=== PATIENT | male | born 1950 | race Caucasian/White ===

== ENCOUNTER → 2016-11-30 | Outpatient (CLI) | payer BC ==
[~2016-11-30] MED LIST: AMLO-110 PO; ASPI81TA28 PO; CHOL100010 PO; CLC100 PO; LBR25 PO; LORA-741 PO; METO50TA7 PO; MIRA1TAB3 PO; MULT-506 PO; OPTIRAY 320 IV PRN; OXYB5TAB74 PO; ROSU5TAB PO; SOLI10TA2 PO; ULT50X PO; VALS320T PO; ZOLP10TA PO
--- NOTE | 2016-11-30 11:33 | DIAGNOSTIC IMAGING REPORT ---
CT OF THE CHEST WITH IV CONTRAST CLINICAL HISTORY: PULMONARY NODULE, LEFT SIDE COMPARISON STUDY: 09-09 TECHNIQUE: Following the IV administration of 118 mL of Optiray-320, CT of the thorax was performed from the thoracic inlet to the lung bases. Images are reviewed in the axial, sagittal, and coronal planes. IV contrast was administered without complication. CT DOSE: 452.09 mGy.cm FINDINGS: Thyroid: Imaged portions of the thyroid gland are normal in appearance. Thoracic aorta: The thoracic aorta is normal in course and caliber, noting standard 3-vessel arch anatomy. No aneurysm or dissection is seen. Pulmonary vasculature: The pulmonary trunk is normal in caliber. There are no central filling defects identified to suggest pulmonary embolus. Note that this examination was not protocoled for the evaluation of pulmonary emboli. HEART: The heart is normal in size. There are mild to moderate coronary artery calcifications. Lungs and pleural spaces: No pleural effusions are visualized. There is pulmonary emphysema. There is a stable, 10 x 5 x 5 mm bilobed left upper lobe pulmonary nodule.. Mediastinum: There is no mediastinal lymphadenopathy. Kelli: Clear. Axilla: Clear. Upper abdomen: There is a 2 cm lower pole left renal cyst Skeletal structures: There is an old superior endplate L1 compression fracture. IMPRESSION: 1. Stable 10 x 5 x 5 mm bilobed left upper lobe pulmonary nodule 2. Emphysema 3. No evidence of pathologic adenopathy. Please refer to below summary of Fleischner criteria recommendations for follow-up of incidental CT nodules (Karin Barrera, Guidelines for management of small pulmonary nodules detected on CT scans: A statement from the Fleischner Society, Radiology 237: [phone].) Low Risk Patient: Minimal or no smoking or other known risk factors for malignancy <=4 mm: No follow-up needed. >4-6 mm: Initial follow-up CT at 12 months; if unchanged, no further follow-up. >6-8 mm: Initial follow-up CT at 6-12 months then at 18-24 months if no change. >8 mm: Follow-up CT at \R\3, 9, 24 months, or PET and/or biopsy. High Risk Patient: History of smoking or other known risk factors <=4 mm: Follow-up at 12 months; if unchanged, no further follow-up. >4-6 mm: Initial follow-up CT at 6-12 months then at 18-24 months if no change. >6-8 mm: Initial follow-up CT at 3-6 months then at 9-12 and 24 months if no change. >8 mm: Same as low risk patient. Note: Nodule size measured as average of length and width. Ground glass or partly solid nodules may require longer follow-up to exclude indolent adenocarcinoma. Electronically signed by: Micha Buckley M.D. 11/30/2016 11:32 AM Dictated Date/Time: 11/30/2016 11:26 AM
[2016-11-30 12:30] LABS: ALT/SGPT 22 U/L (12-78); AST/SGOT 11 U/L (15-37); BLOOD UREA NITROGEN 17 mg/dl (7-18); BUN/CREATININE RATIO 19.6 (10-20); CALCIUM 8.3 mg/dl (8.5-10.1); CARBON DIOXIDE 27 mmol/L (21-32); CHLORIDE 102 mmol/L (98-107); CREATININE 0.85 mg/dl (0.60-1.40); GLUCOSE 97 mg/dl (70-99); POTASSIUM 4.5 mmol/L (3.5-5.1); SODIUM 136 mmol/L (136-145)
[2016-11-30 12:32] LABS: ALKALINE PHOSPHATASE 56 U/L (45-117); CHOLESTEROL 104 mg/dl (0-200); CHOLESTEROL/HDL RATIO 2.8; HDL CHOLESTEROL 37 mg/dl; LDL CHOLESTEROL CALCULATED 47 mg/dl; TRIGLYCERIDES 100 mg/dl (0-150); VERY LOW DENSITY LIPOPROT CALC 20 mg/dl
[2016-11-30 12:45] LABS: ESTIMATED AVERAGE GLUCOSE 134 mg/dl; HA1C FLAG Normal (Normal)
--- NOTE | 2016-12-06 11:59 | CODING QUERY MEDICAL NECESSITY ---
SUPPORTING DIAGNOSIS NEEDED A supporting diagnosis is required for the test/procedure performed on this patient in order for us to be reimbursed by the patient's insurance. Please provide a supporting diagnosis for the following test/procedure listed below next to the test name along with your signature. *If there is no additional diagnosis for this patient that would support the following test/procedure please document that below next to the test/procedure. Test(s)/Procedure(s) that require a supporting diagnosis: * GLYCATED HEMOGLOBIN DIAGNOSIS: * DOS: 11/30/16 Provider Signature: Date: Thank you Lexi Jung Health Information Management Once completed, please kindly fax back to [phone] For questions please call [phone]
== END | disposition home or self-care (01) ==
LOC: C.CTS 11:01
PROVIDERS: ATTEND Internal Medicine
DX: R91.1 Solitary pulmonary nodule (principal); L98.9 Disorder of the skin and subcutaneous tissue, unspecified; J43.9 Emphysema, unspecified; R73.01 Impaired fasting glucose

== ENCOUNTER → 2017-03-08 | Outpatient (CLI) | payer BC ==
[~2017-03-08] MED LIST changes: +DTR/5 PO; -OPTIRAY 320 IV PRN; -OXYB5TAB74 PO
== END | disposition home or self-care (01) ==
LOC: C.LAB 08:23
PROVIDERS: ATTEND Urology
DX: C61 Malignant neoplasm of prostate (principal)

== ENCOUNTER → 2017-03-30 | Outpatient (CLI) | payer BC ==
[~2017-03-30] MED LIST changes: -DTR/5 PO; +OXYB5TAB74 PO
--- NOTE | 2017-03-30 09:26 | DIAGNOSTIC IMAGING REPORT ---
(CHEST) THORAX WITHOUT HISTORY:66 yearsMalePULMONARY NODULE COMPARISON: Chest CT 11/30/2016. TECHNIQUE: Multiple axial CT images of the chest were obtained without contrast. FINDINGS: No dominant thyroid nodule is seen. No pathologic-appearing adenopathy of the thorax is identified. Three-vessel distribution coronary arterial calcifications are present. Moderate to extensive atherosclerotic plaquing of the aorta and carotid vasculature is redemonstrated. Positional Afrin prior plaquing of the celiac, superior mesenteric and renal artery origins. There is no pneumothorax or pleural effusion. There is mild paraseptal and centrilobular upper lobe predominant emphysematous changes noted. The lungs are hyperinflated. No focal airspace consolidation or overt pulmonary edema. There is a linear noncalcified pulmonary nodule again seen within the apical posterior segment left upper lobe measuring 5 x 5 x 10 mm in AP, transverse and craniocaudal dimensions respectively. There is subsegmental pleural parenchymal scarring of the lung bases. No additional suspicious or new pulmonary nodules are identified. Minimal layering secretions are seen within the mid to distal trachea. The imaged upper abdominal structures are within normal limits.Multilevel discogenic degenerative changes are present throughout the spine along with facet arthrosis. There is approximately 30% anterior endplate compression deformity of the L1 vertebral body, unchanged from comparison IMPRESSION: 1. Unchanged linear 10 x 5 x 5 mm noncalcified pulmonary nodule of the apical posterior segment left upper lobe. No new or additional suspicious pulmonary nodules are identified. 2. Background mild paraseptal and centrilobular upper lobe predominant emphysema. 3. No pathologic adenopathy identified. Please refer to below summary of Fleischner criteria recommendations for follow-up of incidental CT nodules (Karin Barrera, Guidelines for management of small pulmonary nodules detected on CT scans: A statement from the Fleischner Society, Radiology 237: [phone].) SOLID NODULES Multiple nodules size: >8 mm * Low risk patients: follow-up at 3-6 months, then consider further follow-up at 18-24 months * high risk patients: follow-up at 3-6 months, then at 18-24 months if no change Note: newly detected indeterminate nodule in persons 35 years of age or older. * Low risk patients: minimal or absent history of smoking and/or other known risk factors * high risk patients: history of smoking or of other known risk factors (e.g. first degree relative with lung cancer, or exposure to asbestos, radon, uranium) * if a nodule up to 8 mm is partly solid or is ground glass further follow-up is required after 24 months to exclude possible slow growing adenocarcinoma (CLARISSE) The above report was generated using voice recognition software. It may contain grammatical, syntax or spelling errors. Electronically signed by: Jeffy Puente 03/30/2017 9:25 AM Dictated Date/Time: 03/30/2017 9:16 AM
== END | disposition home or self-care (01) ==
LOC: C.CTS 08:57
PROVIDERS: ATTEND Internal Medicine Pulmonary Disease
DX: R91.1 Solitary pulmonary nodule (principal)

== ENCOUNTER → 2017-04-19 | Outpatient (CLI) | payer BC ==
[2017-04-19 12:44] LABS: ESTIMATED AVERAGE GLUCOSE 137 mg/dl; HA1C FLAG Normal (Normal)
== END | disposition home or self-care (01) ==
LOC: C.LABBC 08:52
PROVIDERS: ATTEND Internal Medicine
DX: R73.01 Impaired fasting glucose (principal)

== ENCOUNTER → 2017-04-24 | Outpatient (CLI) | payer BC ==
[~2017-04-24] VITALS: Ht 170.8 cm; Wt 78.5 kg
[2017-04-24 14:47] VITALS: BP_DIAS 72
[2017-04-24 14:55] VITALS: Ht 170.8 cm; Wt 78.5 kg
== END | disposition home or self-care (01) ==
LOC: C.NRED 10:21
PROVIDERS: ATTEND Internal Medicine
DX: R73.03 Prediabetes (principal)

== ENCOUNTER 2017-05-26 05:14 | Inpatient (IN) | payer BC, OTHER ==
[2017-05-18 08:54] VITALS: BMI 27.0
--- NOTE | 2017-05-18 09:38 | PAT Medication Instructions ---
Service Date May 18, 2017. Current Home Medication List Amlodipine (Norvasc), 5 MG PO QAM Aspirin (Aspirin Ec), 81 MG PO QAM Cholecalciferol (Vitamin D), 2,000 INTER.UNIT PO QAM Lorazepam (Ativan), 0.5 MG PO Q6H PRN for ANXIETY Metoprolol Succ (Toprol Xl) (Toprol-Xl), 75 MG PO QAM Mirabegron (Myrbetriq Er), 50 MG PO QAM Multivitamin (Multivitamin), 1 TAB PO QAM Oxybutynin Chloride (Ditropan), 1 TAB PO BID Rosuvastatin Calcium (Crestor), 10 MG PO QAM Valsartan (Diovan), 320 MG PO QAM Zolpidem Tartrate (Ambien), 5 MG PO HS PRN for Sleep Medication Instructions For Your Scheduled Surgery - Check with surgeon for instructions: Aspirin (Aspirin Ec), 81 MG PO QAM - Hold the following medications the morning of surgery: Valsartan (Diovan), 320 MG PO QAM Mirabegron (Myrbetriq Er), 50 MG PO QAM Multivitamin (Multivitamin), 1 TAB PO QAM Oxybutynin Chloride (Ditropan), 1 TAB PO BID Cholecalciferol (Vitamin D), 2,000 INTER.UNIT PO QAM - Take the following medications the morning of surgery with a sip of water: Amlodipine (Norvasc), 5 MG PO QAM Lorazepam (Ativan), 0.5 MG PO Q6H PRN for ANXIETY (if needed) Metoprolol Succ (Toprol Xl) (Toprol-Xl), 75 MG PO QAM Rosuvastatin Calcium (Crestor), 10 MG PO QAM - Take the following medications as scheduled the night before surgery: Zolpidem Tartrate (Ambien), 5 MG PO HS PRN for Sleep (if needed) Oxybutynin Chloride (Ditropan), 1 TAB PO BID Lorazepam (Ativan), 0.5 MG PO Q6H PRN for ANXIETY (if needed) If you have any questions please call us at [phone] or [phone] or [phone]
[2017-05-18 10:00] LABS: BASO % 0.5 %; BASO ABS # 0.04 K/uL (0-0.2); COMPLETE YES; EOS % 4.2 %; HEMATOCRIT 42.7 % (42-52); IG% 0.1 %; LYMPH % 24.5 %; LYMPH ABS # 2.09 K/uL (1.2-3.4); MEAN CELL VOLUME 97.7 fL (80-100); MEAN CORPUSCULAR HEMOGLOBIN 33.6 pg (25-34); MEAN CORPUSCULAR HGB CONC 34.4 g/dl (32-36); MEAN PLATELET VOLUME 8.2 fL (7.4-10.4); MONO % 8.2 %; NEUT % 62.5 %; PLATELET COUNT 290 K/uL (130-400); RED BLOOD COUNT 4.37 M/uL (4.7-6.1); WHITE BLOOD COUNT 8.53 K/uL (4.8-10.8)
[2017-05-18 12:15] LABS: BUN/CREATININE RATIO 23.4 (10-20); CALCIUM 8.9 mg/dl (8.5-10.1); CREATININE 0.78 mg/dl (0.60-1.40); POTASSIUM 4.5 mmol/L (3.5-5.1)
[2017-05-25] MEDS: METOCLOPRAMIDE HCL INJ 5 MG/ML 2 ML VIAL IV. SCH (15:00)
[~2017-05-26] VITALS: Ht 172.7 cm; Wt 80.5 kg
[2017-05-26] VITALS (9 sets, daily range): BP systolic 111–154; BP diastolic 65–80; PULSE 52–82; TEMP 36.3–36.9; O2SAT 90–97; Ht 172.7 cm; Wt 80.5 kg
[~2017-05-26 05:14] MED LIST changes: -CLC100 PO; -LBR25 PO; -SOLI10TA2 PO; -ULT50X PO
[2017-05-26] MEDS ORDERED: LACTATED RINGER'S 1000ML 1,000 ML IV SCH (06:00)
[2017-05-26] MEDS ORDERED: SODIUM CHLORIDE 0.9% PF 50 ML VIAL ONE (06:55)
[2017-05-26] MEDS ORDERED: BUPIVACAINE LIPOSOME 1/3% 266 MG/20 ML VIAL INFIL ONE (06:55)
--- NOTE | 2017-05-26 06:58 | History & Physical Bridge Note ---
H&P Re-Evaluation Bridge Note: I have examined the patient, reviewed the History & Physical and in the interval since the performance of the History & Physical I have noted the following changes of clinical significance: No changes noted
[2017-05-26] MEDS ORDERED: SUCCINYLCHOLINE CHLORIDE 20 MG/ML 10 ML VIAL IV ONE (07:08)
[2017-05-26] MEDS ORDERED: ONDANSETRON INJ 2 MG/ML 2 ML VIAL ONE (07:08)
[2017-05-26] MEDS ORDERED: GLYCOPYRROLATE INJ 0.2 MG/ML VIAL ONE (07:08)
[2017-05-26] MEDS ORDERED: LIDOCAINE HCL 2% 2 ML VIAL (20MG/ML) ONE (07:08)
[2017-05-26] MEDS ORDERED: DEXAMETHASONE SOD INJ 4 MG/ML VIAL ONE (07:08)
[2017-05-26] MEDS ORDERED: NEOSTIGMINE METHYLSULFATE 5 MG/5 ML SYR ONE (07:08)
[2017-05-26] MEDS ORDERED: PHENYLEPHRINE HCL INJ 10 MG/ML VIAL ONE (07:08)
[2017-05-26] MEDS ORDERED: PROPOFOL IV EMULSION 10 MG/ML 20 ML VIAL IV ONE (07:08)
[2017-05-26] MEDS ORDERED: EpHEDrine SULFATE INJ 50 MG/ML AMP ONE (07:08)
[2017-05-26] MEDS ORDERED: MIDAZOLAM HCL 1 MG/ML 2ML VIAL ONE (07:09)
[2017-05-26] MEDS ORDERED: FENTANYL CITRATE INJ 50 MCG/1 ML 2 ML VIAL ONE ×3 (07:09→10:51)
[2017-05-26] MEDS ORDERED: CEFAZOLIN SOD 1 GM VIAL ONE (08:10)
[2017-05-26] MEDS ORDERED: PROMETHAZINE HCL INJ 12.5 MG in SODIUM CHLORIDE 0.9% 50ML 50 ML IV PRN (09:15)
[2017-05-26] MEDS ORDERED: FLUMAZENIL 0.1 MG/1 ML 10 ML VIAL IV PRN (09:15)
[2017-05-26] MEDS ORDERED: ONDANSETRON INJ 2 MG/ML 2 ML VIAL IV PRN ×2 (09:15→10:45)
[2017-05-26] MEDS ORDERED: EpHEDrine SULFATE INJ 50 MG/ML AMP IV PRN (09:15)
[2017-05-26] MEDS ORDERED: ATROPINE SULFATE 0.1 MG/ML 5ML SYR IV PRN (09:15)
[2017-05-26] MEDS ORDERED: NALOXONE HCL 0.4 MG/1 ML VIAL/CARP IV PRN (09:15)
[2017-05-26] MEDS ORDERED: D5W AND 1/2NSS 1,000 ML IV SCH (10:39)
[2017-05-26] MEDS ORDERED: LORAZEPAM 0.5 MG TAB PO PRN (10:45)
[2017-05-26] MEDS ORDERED: MoRPHine SULFATE 2 MG/ML CARP IV PRN (10:45)
[2017-05-26] MEDS: HYDROmorphone INJ 1 MG/ML SYR IV PRN ×5 (11:02→12:21)
--- NOTE | 2017-05-26 11:53 | DIAGNOSTIC IMAGING REPORT ---
CHEST ONE VIEW PORTABLE CLINICAL HISTORY: Postop left upper lobe wedge resection. COMPARISON STUDY: 08/01/2016 FINDINGS: Postsurgical changes are present on the left. There is a left chest tube with its tip at the left apex. No significant pneumothorax is visualized. There is a 5 cm left apical opacity, likely representing postsurgical edema. The heart is enlarged. There are bibasal airspace opacities likely atelectatic[ there is mild elevation of the interstitium. Mild pulmonary vascular congestion/fluid overload is suspected. IMPRESSION: 1. 5 cm left apical opacity likely representing postsurgical edema 2. Left-sided chest tube. No significant pneumothorax 3. Bibasilar opacities likely atelectatic 4. Suspected mild pulmonary vascular congestion/fluid overload Electronically signed by: Micha Buckley M.D. 05/26/2017 11:52 AM Dictated Date/Time: 05/26/2017 11:50 AM
--- NOTE | 2017-05-26 12:05 | Anesthesiology Progress Note ---
Anesthesia Post Op Note Date & Time May 26, 2017 at 12:05 Vital Signs Pain Intensity: 5 Vital Signs Past 12 Hours Date Time Temp Pulse Resp B/P (MAP) Pulse Ox O2 Delivery O2 Flow Rate FiO2 05/26/17 11:55 36.0 67 18 108/58 94 Nasal Cannula 4 05/26/17 11:45 66 13 116/59 94 Nasal Cannula 4 05/26/17 11:35 67 12 102/68 93 Nasal Cannula 2 05/26/17 11:25 70 15 117/61 94 Nasal Cannula 2 05/26/17 11:15 71 12 123/60 99 Oxymask 10 05/26/17 11:05 71 12 120/64 99 Oxymask 10 05/26/17 10:55 36.0 67 16 123/48 99 Oxymask 10 05/26/17 05:54 36.5 52 20 154/80 97 Room Air Notes Mental Status: alert / awake / arousable, participated in evaluation Pt Amnestic to Procedure: Yes Nausea / Vomiting: adequately controlled Pain: adequately controlled Airway Patency, RR, SpO2: stable & adequate BP & HR: stable & adequate Hydration State: stable & adequate Anesthetic Complications: no major complications apparent
[2017-05-26] MEDS: OXYCODONE HCL IR 5 MG TAB (IMMEDIATE RELEASE) PO PRN ×2 (13:20→22:00)
--- NOTE | 2017-05-26 13:42 | OPERATIVE REPORT ---
DATE OF OPERATION: 05/26/2017 PREOPERATIVE DIAGNOSIS: Left upper lobe nodule. POSTOPERATIVE DIAGNOSIS: Same. PROCEDURES: 1. Robot assisted thoracoscopic surgery with wedge resection left upper lobe. 2. Lymph node biopsies. SURGEON: Dr. Levine. RISK SPECIALIST: Rich Liang PA-C. ANESTHESIA: General anesthesia endotracheal intubation with double lumen tube. SPECIFICS OF PROCEDURE AND FINDINGS: This is a 66-year-old male with a past medical history of cigarette smoking, was found to have a nodule in his left upper lobe. I saw the patient and his in the office several times and options were discussed. One option would be to wait and repeat a CT scan in 3-6 months. Another option would be to go in and remove this in a minimally invasive fashion and sent it off for frozen section. The patient deliberated about this several times and came to the office stating he would like to have it removed. On 05/26/2017 I brought the patient to the operating room and did an uncomplicated robot assisted thoracoscopic wedge resection of this mass. While waiting for frozen sections I removed several lymph nodes. These all appeared to be benign. He had well-developed fissures. We did not lose blood. We used Exparel to perform intercostal block. There was no evidence of malignancy upon evaluation in the cutting room by the pathologist. I did send off to more wedge resections to make sure that we had gotten this, however even after generous wedge resection I did not find anything that looked malignant. For this reason, we elected to proceed with closure. He tolerated it well. PROCEDURE: The patient was brought to the operating room and laid in supine position. General anesthesia was induced and endotracheal intubation was performed with a double lumen tube. The patient was placed in right lateral decubitus position, his left chest prepped, draped in usual sterile fashion. After appropriate timeout had been called and appropriate antibiotics had been given and the patient had been prepped and draped in usual sterile sterile fashion an incision was made a bit posterior to the scapular tip and a 12 mm port was placed and the camera was placed. There were no adhesions. He had well-developed fissures. AN 8 mm port was placed 10 cm posterior to this in the seventh interspace and then another 8 mm port was placed posteriorly about 10 cm in the seventh intercostal space. Assistance port was placed just above the diaphragm anteriorly. We were then able to bring this down and as there were no adhesions we were to easily mobilize the left upper lobe and we did a generous wedge resection. I did not feel a nodule in this so I took 2 more wedge resections and checked the CT scan multiple times and it was apparent we removed this area. Dr. Neil Sevillaw up in pathology and I talked several times. He did not see evidence of malignancy. The chest was irrigated out, really did not have an air leak. While waiting for the frozen section, I dissected out the fissure posteriorly and sent off some level 11 nodes as well as level 10 and level 5 nodes. I really did not see a level 6 node. We used 266 mg of Exparel reconstituted in 60 mL total of normal saline and performed an intercostal block from the 2nd to the 11th rib. We then placed a 24 Pakistani chest tube in the anterior thoracoscopy port and sutured in place with heavy silk suture. The other incisions were closed with 0 Vicryl to reapproximate the muscle layers and 4-0 Monocryl in running subcuticular fashion to approximate the wound edges. He tolerated it well and was extubated in the room with negligible blood loss. I attest to the content of the Intraoperative Record and any orders documented therein. Any exception s are noted below.
[2017-05-26] MEDS: ACETAMINOPHEN IV 1,000 MG in EMPTY BAG 0 ML IV SCH (16:11)
[2017-05-26] MEDS: CEFAZOLIN IV 2,000 MG in DEXTROSE 5% 50ML 100 ML IV SCH ×2 (16:28→23:56)
[2017-05-26] MEDS ORDERED: NURSING VERBAL MED ORDER ONE (18:30)
[2017-05-26] MEDS: METOCLOPRAMIDE HCL INJ 5 MG/ML 2 ML VIAL IV. SCH (21:55)
[2017-05-26] MEDS: KETOROLAC TROMETHAMINE 15 MG/ML VIAL IV. SCH (21:56)
[2017-05-26] MEDS: DOCUSATE SODIUM 100 MG CAP PO SCH (21:56)
[2017-05-27] MEDS: ACETAMINOPHEN IV 1,000 MG in EMPTY BAG 0 ML IV SCH ×2 (00:02→07:55)
[2017-05-27 03:17] VITALS: BP 114/68; PULSE 65; TEMP 36.7; O2SAT 92
[2017-05-27] MEDS: KETOROLAC TROMETHAMINE 15 MG/ML VIAL IV. SCH (05:13)
[2017-05-27] MEDS: METOCLOPRAMIDE HCL INJ 5 MG/ML 2 ML VIAL IV. SCH (05:13)
[2017-05-27 05:17] VITALS: O2SAT 91
--- NOTE | 2017-05-27 07:16 | DIAGNOSTIC IMAGING REPORT ---
CHEST ONE VIEW PORTABLE HISTORY: 66 years-old Male follow-up study status post left upper lobe wedge resection. COMPARISON: Chest radiograph 05/26/2017 TECHNIQUE: Portable upright AP view of the chest FINDINGS: Cardiac silhouette is upper limits of normal. Left-sided chest tube is in stable positioning terminating at the left lung apex. Well-demarcated edge at the left lung apex is seen with apparent pulmonary markings noted between the edge and chest wall suggesting possible skin fold or alternatively pneumothorax with pleural separation of 2.2 cm. Persistent left upper lobe opacity is noted which may reflect postsurgical changes. Left midlung subsegmental atelectasis is present. Chronic blunting of the right costophrenic angle is noted suggesting atelectasis or scarring. There is mild pulmonary vascular congestion. There is improved aeration of the right lung. There is atherosclerosis of the aorta. There is decreased amount of subcutaneous emphysema along the left lateral chest wall. IMPRESSION: 1. Postsurgical changes of the left lung apex with persistent left upper lobe opacity. Line projecting over the left lung apex is suspicious for pneumothorax. Attention at follow-up recommended. Stable positioning of left-sided chest tube. 2. Improved aeration of the right lung. The above report was generated using voice recognition software. It may contain grammatical, syntax or spelling errors. Electronically signed by: Jeffy Puente M.D. 05/27/2017 7:14 AM Dictated Date/Time: 05/27/2017 7:08 AM
[2017-05-27 07:23] LABS: PROTHROMBIN TIME (PATIENT) 10.8 SECONDS (9.0-12.0)
[2017-05-27] MEDS ORDERED: ULT50X PO (07:24)
--- NOTE | 2017-05-27 07:26 | Discharge Instructions ---
Discharge Instructions Date of Service May 27, 2017. Admission Reason for Admission: Left Lung Mass, Copd Discharge Discharge Diagnosis / Problem: Same Discharge Goals Goal(s): Decrease discomfort (Use pain meds as ordered) Activity Recommendations Activity Limitations: as noted below Lifting Limitations: gradually increase as tolerated Exercise/Sports Limitations: gradually increase as tolerated May Resume Sexual Activity: when tolerated Shower/Bathe: may shower/bathe in 3 days Driving or Machine Use: resume 3 days after discharge . Current Hospital Diet Patient's current hospital diet: Regular Diet Discharge Diet Recommended Diet: Regular Diet Procedures Procedures Performed: Robotic Left Video-Assisted Thoracscopy with Left Upper Lobe Wedge Resection; with Mediastinal Lymphnode Biopsy Pending Studies Studies pending at discharge: yes List of pending studies: Pathology Laboratory Results Hemoglobin A1c Test 04/19/17 09:01 Range/Units Estimated Average Glucose 137 mg/dl Hemoglobin A1c 6.4 H 4.5-5.6 % Medical Emergencies . Who to Call and When: Medical Emergencies: If at any time you feel your situation is an emergency, please call 911 immediately. . Non-Emergent Contact Non-Emergency issues call your: Surgeon (Call [phone] Levine for any problems.) . "Provider Documentation" section prepared by Jhony Levine. . VTE Core Measure Inpt VTE Proph given/why not?: Enoxaparin (Lovenox)SQ, SCD's
[2017-05-27 07:31] VITALS: BP 152/75; PULSE 55; TEMP 36.5; O2SAT 90
--- NOTE | 2017-05-27 07:55 | DIAGNOSTIC IMAGING REPORT ---
CHEST ONE VIEW PORTABLE HISTORY: 66 years-old Male BERENICE wedge follow-up study status post left upper lobe resection and chest tube removal. COMPARISON: Portable chest radiograph 05/27/2017 TECHNIQUE: Portable upright AP view of the chest FINDINGS: Postsurgical changes of the left upper lobe are again seen. Curvilinear line at the left lung apex is again seen suggesting pneumothorax with pleural separation of 2.3 cm. There has been interval removal of the left-sided chest tube. Persistent subsegmental left mid lung and bibasilar opacities suggest atelectasis with chronic blunting of the right costophrenic angle. Bones are grossly intact. IMPRESSION: 1. Status post left chest tube removal. 2. Persistent left apical pneumothorax with postsurgical changes of the left upper lobe. The above report was generated using voice recognition software. It may contain grammatical, syntax or spelling errors. Electronically signed by: Jeffy Puente M.D. 05/27/2017 7:53 AM Dictated Date/Time: 05/27/2017 7:50 AM
[2017-05-27 08:27] VITALS: BP 152/75; PULSE 55; TEMP 36.5; O2SAT 90
[2017-05-27] MEDS: DOCUSATE SODIUM 100 MG CAP PO SCH (08:42)
[2017-05-27] MEDS ORDERED: ROSUVASTATIN CALCIUM 10 MG TAB PO SCH (09:00)
[2017-05-27] MEDS ORDERED: VALSARTAN 80 MG TAB PO SCH (09:00)
[2017-05-27] MEDS ORDERED: ENOXAPARIN 40 MG/0.4 ML SYR SQ SCH (09:00)
[2017-05-27] MEDS ORDERED: AMLODIPINE BESYLATE 5 MG TAB PO SCH (09:00)
[2017-05-27] MEDS ORDERED: ASPIRIN 81 MG ECTAB PO SCH (09:00)
[2017-05-27] MEDS ORDERED: MIRABEGRON ER 25 MG TAB PO SCH (09:00)
[2017-05-27] MEDS ORDERED: MULTIVITAMIN TAB PO SCH (09:00)
[2017-05-27] MEDS ORDERED: CHOLECALCIFEROL 1000 INTER.UNIT TAB PO SCH (09:00)
[2017-05-27] MEDS ORDERED: METOPROLOL SUCC 25MG EXT REL TAB PO SCH (09:00)
[2017-05-27] MEDS: OXYCODONE HCL IR 5 MG TAB (IMMEDIATE RELEASE) PO PRN (09:42)
--- NOTE | 2017-05-28 06:20 | DISCHARGE SUMMARY ---
HOSPITAL COURSE: Mr. Hurtado was seen today on postop day #1 status post a robotic wedge resection with mediastinal lymph node biopsies on yesterday. He looks very good. He has been on 2 liters of O2, but I removed it and his saturations stayed in the low 90s at rest. I ambulated him in the hallway and he dropped transiently but came back over 90 very quickly. I am going to discharge him without supplemental oxygen. He looks great and sounds good and his x-ray looked good after we removed the chest tube except for small apical pneumothorax. He had no air leak. I will discharge him today and I will see him back in the office early next week with an x-ray. We will have the pathology results back at that time. BRUCE
== END 2017-05-27 10:30 | disposition home or self-care (01) | DRG 165 ==
LOC: C.ACU 05:14 → C.MSN 06:55 → ENRESERV 12:19
PROVIDERS: ADMIT Surgery; ATTEND Surgery
PROC: 0BBG4ZZ Excision of Left Upper Lung Lobe, Percutaneous Endoscopic Approach (ICD-10-PCS; principal; 2017-05-26 07:30)
PROC: 07B74ZX Excision of Thorax Lymphatic, Percutaneous Endoscopic Approach, Diagnostic (ICD-10-PCS; principal; 2017-05-26 07:30)
DX: R91.1 Solitary pulmonary nodule (principal); Z79.82 Long term (current) use of aspirin; Z79.899 Other long term (current) drug therapy; Z87.891 Personal history of nicotine dependence

== ENCOUNTER → 2017-06-07 | Outpatient (CLI) | payer BC ==
[~2017-06-07] MED LIST changes: -OXYB5TAB74 PO; +ULT50X PO
--- NOTE | 2017-06-07 09:56 | DIAGNOSTIC IMAGING REPORT ---
CHEST 2 VIEWS ROUTINE CLINICAL HISTORY: R91.1 Pulmonary nodule, [id number] COMPARISON STUDY: 05/27/2017 FINDINGS: Postsurgical changes are present within the left lung apex. There is interval decrease in the size of left apical pneumothorax which currently measures 11 mm. There is improving aeration the right lung base. Linear right infrahilar opacities are likely atelectatic.[ There is interval decrease in the size of the left apical opacity. IMPRESSION: 1. Interval decrease in the size of left apical pneumothorax with a current pleural separation is 12 mm 2. Interval decrease in the size of a 2 cm left apical opacity, likely representing resolving postsurgical edema 3. Resolving right basilar airspace opacities Electronically signed by: Micha Buckley M.D. 06/07/2017 9:55 AM Dictated Date/Time: 06/07/2017 9:48 AM
== END | disposition home or self-care (01) ==
LOC: C.RAD 09:20
PROVIDERS: ATTEND Physician Assistant
DX: R91.1 Solitary pulmonary nodule (principal)

== ENCOUNTER → 2017-09-07 | Outpatient (CLI) | payer BC | END | disposition home or self-care (01) | LOC: C.LAB 09:17 | PROVIDERS: ATTEND Urology | DX: F41.9 Anxiety disorder, unspecified (principal); C61 Malignant neoplasm of prostate; F10.10 Alcohol abuse, uncomplicated; L57.0 Actinic keratosis; R93.8 Abnormal findings on diagnostic imaging of other specified body structures; S82.891A Other fracture of right lower leg, initial encounter for closed fracture; X58.XXXA Exposure to other specified factors, initial encounter ==

== ENCOUNTER → 2017-09-22 | Outpatient (CLI) | payer BC ==
[~2017-09-22] MED LIST changes: -AMLO-110 PO; +AMLO5TAB3 PO; -METO50TA7 PO; +METO50TA8 PO
--- NOTE | 2017-09-22 11:54 | DIAGNOSTIC IMAGING REPORT ---
CT OF THE CHEST WITHOUT IV CONTRAST CLINICAL HISTORY: Follow-up pulmonary nodules. COMPARISON STUDY: Chest CT T August 26, 2016 and March 30, 2017. CT DOSE: 301.28 mGy.cm TECHNIQUE: Axial images of the chest were obtained without IV contrast. Images were reviewed in the axial, sagittal, and coronal planes. IV contrast was not administered for this examination. A dose lowering technique was utilized adhering to the principles of ALARA. FINDINGS: No enlarged axillary, mediastinal or hilar lymph nodes are present. The size of the heart is normal. There is no pericardial effusion. There is extensive coronary artery calcification. Central airways are patent. Moderate centrilobular and paraseptal emphysema is noted. The patient status post interval left upper lobe wedge resection. The previously described 1 cm left upper lobe nodule shown on CT of March 30, 2017 is not visualized on this exam and has likely been resected. Central airways are patent. There is no consolidation to suggest pneumonia. No pneumothorax or pleural effusion is noted. No suspicious osseous lesions are present. There are several old left rib fractures. Upper abdomen is unremarkable on this unenhanced exam. IMPRESSION: 1. Status post interval left upper lobe wedge resection. Previously described 1 cm left upper lobe nodule not visualized on this exam and has likely been resected. 2. No pneumothorax or pleural effusion. 3. Moderate emphysema. 4. Extensive coronary artery calcification. Electronically signed by: Austin Baer M.D. 09/22/2017 11:53 AM Dictated Date/Time: 09/22/2017 10:12 AM
== END | disposition home or self-care (01) ==
LOC: C.CTS 09:55
PROVIDERS: ATTEND Surgery
DX: R91.1 Solitary pulmonary nodule (principal); I25.10 Atherosclerotic heart disease of native coronary artery without angina pectoris; J43.9 Emphysema, unspecified

== ENCOUNTER → 2017-09-29 | Outpatient (CLI) | payer BC ==
[~2017-09-29] MED LIST changes: +AMLO-110 PO; -AMLO5TAB3 PO; +METO50TA7 PO; -METO50TA8 PO
[2017-09-29 09:36] LABS: BASO % 0.7 %; BASO ABS # 0.05 K/uL (0-0.2); EOS % 4.9 %; EOS ABS # 0.37 K/uL (0-0.5); HEMATOCRIT 44.7 % (42-52); HEMOGLOBIN 15.1 g/dL (14.0-18.0); IG# 0.02 K/uL (0.00-0.02); LYMPH % 23.3 %; LYMPH ABS # 1.75 K/uL (1.2-3.4); MEAN CELL VOLUME 97.6 fL (80-100); MEAN CORPUSCULAR HGB CONC 33.8 g/dl (32-36); MEAN PLATELET VOLUME 8.3 fL (7.4-10.4); MONO % 10.9 %; MONO ABS # 0.82 K/uL (0.11-0.59); NEUT % 59.9 %; PLATELET COUNT 307 K/uL (130-400); RED CELL DISTRIBUTION WIDTH CV 12.8 % (11.5-14.5); RED CELL DISTRIBUTION WIDTH SD 45.5 fL (36.4-46.3); WHITE BLOOD COUNT 7.51 K/uL (4.8-10.8)
[2017-09-29 09:53] LABS: HEMOGLOBIN A1C 6.1 % (4.5-5.6)
[2017-09-29 10:43] LABS: ALBUMIN 3.6 gm/dl (3.4-5.0); ALT/SGPT 30 U/L (12-78); AST/SGOT 17 U/L (15-37); BLOOD UREA NITROGEN 25 mg/dl (7-18); CALCIUM 8.3 mg/dl (8.5-10.1); CARBON DIOXIDE 27 mmol/L (21-32); CREATININE 0.88 mg/dl (0.60-1.40); GLUCOSE 115 mg/dl (70-99); POTASSIUM 4.4 mmol/L (3.5-5.1); SODIUM 135 mmol/L (136-145)
[2017-09-29 10:55] LABS: ALKALINE PHOSPHATASE 63 U/L (45-117); CHOLESTEROL 123 mg/dl (0-200); LDL CHOLESTEROL CALCULATED 54 mg/dl; TOTAL PROTEIN 7.8 gm/dl (6.4-8.2)
== END | disposition home or self-care (01) ==
LOC: C.LAB 08:59
PROVIDERS: ATTEND Internal Medicine
DX: I10 Essential (primary) hypertension (principal); R73.01 Impaired fasting glucose; E78.5 Hyperlipidemia, unspecified; R79.89 Other specified abnormal findings of blood chemistry; E55.9 Vitamin D deficiency, unspecified; R73.03 Prediabetes

== ENCOUNTER → 2018-05-02 | Outpatient (CLI) | payer BC ==
[~2018-05-02] MED LIST changes: -AMLO-110 PO; +AMLO5TAB3 PO; -METO50TA7 PO; +METO50TA8 PO
[2018-05-02 09:33] LABS: BASO % 0.5 %; BASO ABS # 0.03 K/uL (0-0.2); EOS ABS # 0.38 K/uL (0-0.5); HEMATOCRIT 42.3 % (42-52); HEMOGLOBIN 14.4 g/dL (14.0-18.0); IG# 0.01 K/uL (0.00-0.02); LYMPH % 24.9 %; LYMPH ABS # 1.58 K/uL (1.2-3.4); MEAN CELL VOLUME 95.5 fL (80-100); MEAN CORPUSCULAR HEMOGLOBIN 32.5 pg (25-34); MEAN PLATELET VOLUME 8.3 fL (7.4-10.4); MONO % 8.5 %; MONO ABS # 0.54 K/uL (0.11-0.59); NEUT % 59.9 %; NEUT ABS # 3.81 K/uL (1.4-6.5); PLATELET COUNT 275 K/uL (130-400); RED CELL DISTRIBUTION WIDTH CV 12.5 % (11.5-14.5); RED CELL DISTRIBUTION WIDTH SD 43.9 fL (36.4-46.3); WHITE BLOOD COUNT 6.35 K/uL (4.8-10.8)
[2018-05-02 09:46] LABS: HEMOGLOBIN A1C 6.2 % (4.5-5.6)
[2018-05-02 10:07] LABS: ALBUMIN 3.8 gm/dl (3.4-5.0); ALKALINE PHOSPHATASE 47 U/L (45-117); ALT/SGPT 28 U/L (12-78); AST/SGOT 19 U/L (15-37); BLOOD UREA NITROGEN 20 mg/dl (7-18); CALCIUM 8.6 mg/dl (8.5-10.1); CARBON DIOXIDE 27 mmol/L (21-32); CREATININE 0.75 mg/dl (0.60-1.40); GLUCOSE 102 mg/dl (70-99); POTASSIUM 4.4 mmol/L (3.5-5.1); SODIUM 136 mmol/L (136-145); TOTAL PROTEIN 7.2 gm/dl (6.4-8.2)
== END | disposition home or self-care (01) ==
LOC: C.LAB 08:25
PROVIDERS: ATTEND Internal Medicine
DX: I10 Essential (primary) hypertension (principal); R73.01 Impaired fasting glucose; E78.5 Hyperlipidemia, unspecified; R58 Hemorrhage, not elsewhere classified